=== PATIENT | female | born 1980 | race Caucasian/White ===

== ENCOUNTER 2023-11-13 10:43 | Outpatient (AMB) | payer MEDICAID, SELFPAY ==
--- NOTE | 2023-11-13 10:45 | MHC.OFFVIS ---
Vital Signs 11/13/23 11:02 Height 5 ft 2 in Weight 206 lb 2.115 oz BMI 37.7 BP 112/70 Blood Pressure Location Rt brachial Pulse 71 Pulse Source Pulse Oximeter Pulse Oximetry (%) 98 Oxygen Delivery Method Room Air Intake Visit Reasons: Joint Pain/FM/cm Intake Note: Patient presents for joint pain. joint pain and muscle aches all over body but mostly feel more pain and aches on both hand/elbows. Allergies risperidone [From RISPERDAL] Allergy (Unknown, Verified 11/13/23 10:50) SWELLING [id number] Antimigraine Agents Allergy (Unknown, Verified 11/13/23 10:50) UNKNOWN Medication List - Last Reconciled 11/13/23 by Yumiko Rios MD [id number] [id number] mg (Triumeq) 1 tab PO DAILY atorvastatin 40 mg PO DAILY bupropion HCl XL 150 mg PO QAM clonidine HCl 0.2 mg PO DAILY cyclobenzaprine 20 mg PO BEDTIME gabapentin mg PO levetiracetam ER 750 mg PO BID levothyroxine 150 mcg PO DAILY lisinopril 10 mg PO DAILY lurasidone 20 mg PO BEDTIME lurasidone 40 mg PO BEDTIME naproxen 500 mg PO BID norethindrone acetate 5 mg PO DAILY nystatin topical BID ondansetron 8 mg PO BID paroxetine HCl 10 mg PO QAM zolpidem 10 mg PO BEDTIME PRN HPI Comments Details: This is a 43-year-old female presents for evaluation of diffuse pain. She was evaluated by Dr. Shah in the past and no evidence of an autoimmune rheumatic disease was found. She was evaluated by Dr. Ng in 2022. She states that she was not diagnosed with fibromyalgia at the time as well. She was told that she has tennis elbow. She also had carpal tunnel syndrome affecting her left hand. She has surgery for the left hand carpal tunnel without much relief. Continues to have diffuse pain, fatigue. She denies any history of DVT/PE. Denies any you have recurrent miscarriages COUNT INCLUDES [facility] Medical History Opioid dependence in remission Anxiety Major depression Substance abuse Restless leg Migraine Nondiabetic gastroparesis Hypothyroidism Hepatitis C HIV (human immunodeficiency virus infection) Seizure Bipolar 1 disorder Hypertension Dyslipidemia Surgical History History of carpal tunnel surgery H/O tubal ligation History of hernia repair Family History Father Heart disease Parkinson disease Mother Hypertension Dementia Social History Household Members: Spouse Alcohol intake: current Comment: Ocassionally Patient Tobacco Use Status: Current someday Tobacco user Tobacco use type: Cigarette Cigarette Packs Per Day: 0.5 Cigarettes Per Day: 5 Female Reproductive History Menstrual Total pregnancies: 4 Full term: 3 Ab spontaneous: 1 Review of Systems Const Reports fatigue, Reports fever(s), Reports headache(s) and Reports weakness Eyes Reports dry eyes ENT Reports dysphagia, Reports dry mouth and Reports headache(s) GI Reports constipation, Reports dysphagia and Reports nausea Reports sexual dysfunction and Reports vaginal dryness Skin/Breast Reports alopecia and Reports unusual bruising Neuro Reports headache(s), Reports memory loss and Reports weakness Psych Reports abnormal sleep pattern, Reports anxiety, Reports depression and Reports memory loss Endo Reports fatigue Physical Exam Vital Signs: Last Vital Signs Pulse 71 11/13/23 11:02 BP 112/70 11/13/23 11:02 Pulse Ox 98 11/13/23 11:02 Oxygen Delivery Method Room Air 11/13/23 11:02 BMI result Body Mass Index 37.7 Const General: cooperative, healthy appearing and comfortable Nutritional Appearance: obese morbidly obese Orientation/consciousness: patient oriented x3 Limitations: no limitations HEENT Other: Dry tongue Head: Yes normocephalic and Yes atraumatic Resp Effort & Inspection: normal respiratory effort and able to speak in complete sentences Auscultation: clear to auscultation bilaterally Cardio Rate: regular rate Skin General skin exam: no rashes or lesions noted Neuro General: patient oriented x3 Extrem Other: Bilateral 1st CMC joint tenderness Tenderness at the common extensor origin at the lateral epicondyle bilaterally No swollen joints noted today Normal nailfold capillaroscopy Multiple myofascial tender points Results Reviewed Results Reviewed: Previous labs showed FRANCK/RF/CCP/HLA B27 negative? Left hand MRI No clear changes for significant synovitis or inflammatory arthropathy.? No mass or other findings identified to clear account for the symptoms.? Small synovial ingrowth suggested that the ear side of the 3rd metacarpal head.? Nonspecific Labs 08/2023? FRANCK 1-40 cytoplasmic reticular Lyme screen negative TSH 2.43? CMP unremarkable? ESR 33? HbA1c 5.8%? CBC unremarkable Assessment & Plan Assessment & Plan (1) FRANCK positive: Code(s): R76.8 - Other specified abnormal immunological findings in serum Category: Medical Plan: This is a 43-year-old female presents for evaluation of a positive FRANCK in the context of diffuse pain. Patient was evaluated 2 rheumatologists in the past and no evidence of an autoimmune rheumatic disease was found. There is definitely a component of fibromyalgia in her symptoms as well as degenerative arthritis. Will check further sub serologies to evaluate for any underlying inflammatory arthritis Follow-up in 4-6 weeks Plan I spent 46 minutes reviewing patient's chart, evaluating patient, ordering diagnostic workup, counseling patient and documenting in the chart Orders: Orders Erythrocyte Sedimentation Rate Today M32.9 - Systemic lupus erythematosus, unspecified Immunofixation Pnl, Serum Today M32.9 - Systemic lupus erythematosus, unspecified Anti Extractable Nuclear Ag Today M32.9 - Systemic lupus erythematosus, unspecified Anti DNA DS Antibody Today M32.9 - Systemic lupus erythematosus, unspecified Complement C3 Today M32.9 - Systemic lupus erythematosus, unspecified DNA Double Stranded-Crithidia Today M32.9 - Systemic lupus erythematosus, unspecified UA w Microscopic Today M32.9 - Systemic lupus erythematosus, unspecified Lupus Anticoagulant Panel Today R76.0 - Raised antibody titer Complete Blood Count Auto Diff Today M32.9 - Systemic lupus erythematosus, unspecified Comprehensive Met. Panel Today M32.9 - Systemic lupus erythematosus, unspecified C Reactive Protein Today M32.9 - Systemic lupus erythematosus, unspecified Protein Electrophoresis, Serum Today M32.9 - Systemic lupus erythematosus, unspecified T Spot TB Today Z11.7 - Encounter for testing for latent tuberculosis infection Complement C4 Today M32.9 - Systemic lupus erythematosus, unspecified Protein Creatinine Ratio, Ur Today M32.9 - Systemic lupus erythematosus, unspecified Sjogren's Antibodies Today M32.9 - Systemic lupus erythematosus, unspecified Beta-2 Glycoprotein Antibody Today R76.0 - Raised antibody titer Cardiolipin Antibodies Today R76.0 - Raised antibody titer Thyroglobulin Antibodies Today E07.9 - Disorder of thyroid, unspecified Thyroid Peroxidase Antibodies Today E07.9 - Disorder of thyroid, unspecified Coding Level of Care Code New Pt Level 4 (67451) Diagnoses FRANCK positive R76.8
[2023-11-13 11:02] VITALS: BP 112/70; PULSE 71; O2SAT 98; BMI 37.7
== END 2023-11-13 11:20 | disposition home or self-care (01) ==
PROVIDERS: PCP Physician Assistant; Visit Provider Student in an Organized Health Care Education/Training Program
DX: R76.8 Other specified abnormal immunological findings in serum (principal)
CPT/HCPCS: 99204

== ENCOUNTER → 2023-11-13 10:43 | Outpatient (BNVA) | payer MEDICAID, SELFPAY | PROVIDERS: PCP Physician Assistant; Visit Provider Student in an Organized Health Care Education/Training Program | DX: R76.8 Other specified abnormal immunological findings in serum (principal); M25.50 Pain in unspecified joint | CPT/HCPCS: 99202 ==

== ENCOUNTER 2023-11-15 12:39 | Outpatient (REF) | payer MEDICAID, SELFPAY ==
[2023-11-15 12:58] LABS: MANUAL DIFF FLAG NO
[2023-11-15 13:48] LABS: Basophils Absolute Auto 0.1 X10*3/uL (0.0-0.2); Basophils Percent Auto 0.6 % (0-2); Eosinophils Absolute Auto 0.2 X10*3/uL (0.0-0.4); Hematocrit 42.3 % (37.0-47.0); Hemoglobin 14.5 g/dl (12.0-16.0); Imm Gran Abs Auto 0.03 X10*3/uL (0.00-0.03); Imm Gran Pct Auto 0.4 % (0.0-0.4); Lymphocytes Absolute Auto 2.4 X10*3/uL (1.2-4.9); Lymphocytes Percent Auto 29.8 % (20-40); Mean Corpuscular HGB Conc 34.3 g/dl (31.0-35.0); Mean Corpuscular Hemoglobin 32.6 pg (27.0-33.0); Mean Corpuscular Volume 95.1 fL (80.0-98.0); Mean Platelet Volume 10.8 fL (9.4-12.3); Monocytes Absolute Auto 0.6 X10*3/uL (0.1-1.2); Monocytes Percent Auto 7.5 % (2-11); Neutrophils Absolute Auto 4.6 x10*3/uL (2.0-8.3); Neutrophils Percent Auto 58.7 % (45-73); Platelet Count 300 X10*3/uL (160-400); Red Blood Count 4.45 X10*6/uL (4.20-5.50); Red Cell Distribution Width 12.3 % (11.0-16.0); White Blood Count 7.9 X10*3/uL (4.8-10.8)
[2023-11-15 13:58] LABS: Appearance Urine Cloudy; Color Urine Dark Yellow; Glucose Urine UA Negative (Negative); Leukocyte Esterase Urine Small (1+) (Negative); Nitrite Urine Negative (Negative); Specific Gravity - Urine 1.025 (1.005-1.025); UMIC TRIGGER UA YES; Urine Blood Negative (Negative); Urine Ketones Trace mg/dL (Negative); Urine Protein Negative (Neg-Trace)
[2023-11-15 14:11] LABS: Bacteria Urine 3+ (None Seen); Hyaline Casts Urine 0-2 /LPF (0-2); RBC Urine 0-2 /HPF (0-2); Squamous Epithelial Cell Urine >20 /HPF (0-2)
[2023-11-15 14:13] LABS: Creatinine Urine 191.78 mg/dL; Protein/Creatinine Ratio, Ur 0.05 (<0.2); Total Protein Urine Random 9 mg/dL (<12)
[2023-11-15 14:15] LABS: Alanine Aminotransferase 12 U/L (0-31); Albumin Level 4.5 g/dL (3.5-5.0); Alkaline Phosphatase 73 U/L (39-117); Anion Gap 12 (12-20); Aspartate Amino Transferase 17 U/L (5-31); Bilirubin Total 0.3 mg/dL (0.0-1.0); Blood Urea Nitrogen 17 mg/dL (9-16); C Reactive Protein 1.24 mg/dL (< or = 0.50); Calcium 10.3 mg/dL (8.4-10.2); Carbon Dioxide 20 mmol/L (22-29); Chloride 109 mmol/L (96-108); Estimated Glomerular Filt Rate 52; Glucose Random 100 mg/dL (60-115); Potassium 4.2 mmol/L (3.3-5.1); Sodium 137 mmol/L (135-145); Total Protein 8.2 g/dL (6.5-8.0)
[2023-11-15 14:38] LABS: Erythrocyte Sedimentation Rate 36 MM/HR (0-20)
[2023-11-17 10:08] LABS: Prot Elec - Albumin 4.1 g/dL (3.8-4.8); Prot Elec - Alpha1 0.3 g/dL (0.2-0.3); Prot Elec - Alpha2 1.1 g/dL (0.5-0.9); Prot Elec - Beta 1 0.5 g/dL (0.4-0.6); Prot Elec - Beta 2 0.4 g/dL (0.2-0.5); Prot Elec - Total Protein 7.4 g/dL (6.1-8.1)
[2023-11-17 21:14] LABS: Cardiolipin IgG Ab <2.0 GPL-U/mL; Cardiolipin IgM Ab <2.0 MPL-U/mL
[2023-11-17 22:19] LABS: TS Negative Control Passed; TS Panel A 0; TS Panel B 5; TS Positive Control Passed; TSpotTB Borderline (Negative)
[2023-11-17 22:48] LABS: Anti DNA DS Antibody <1 IU/mL; Antibody to SS-A Antigen <1.0 NEG AI (<1.0 NEG); Antibody to SS-B Antigen <1.0 NEG AI (<1.0 NEG); SM/Ribonucleoprotein Ab <1.0 NEG AI (<1.0 NEG); Smith Protein <1.0 NEG AI (<1.0 NEG)
[2023-11-18 00:54] LABS: Complement C3 191 mg/dL (83-193)
[2023-11-21 04:34] LABS: Beta-2 Glycoprotein IgA <2.0 U/mL (<20.0); Beta-2 Glycoprotein IgG <2.0 U/mL (<20.0); Beta-2 Glycoprotein IgM <2.0 U/mL (<20.0)
[2023-11-21 10:33] LABS: Thyroglobulin Antibodies <1 IU/mL (< or = 1); Thyroid Peroxidase Antibodies 1 IU/mL (<9)
[2023-11-22 05:08] LABS: PTT (LAC) Screen 35 sec (<=40)
[2023-11-23 03:08] LABS: IgA 184 mg/dL (47-310); IgG 1216 mg/dL (600-1640); IgM 21 mg/dL (50-300)
[2023-11-23 15:54] LABS: DNAds, Crithidia Antibody Negative (Negative)
== END 2023-11-15 12:40 | disposition home or self-care (01) ==
LOC: HO.LAB 12:39
PROVIDERS: PCP Physician Assistant; Visit Provider Student in an Organized Health Care Education/Training Program
DX: Z11.7 Encounter for testing for latent tuberculosis infection (principal); M32.9 Systemic lupus erythematosus, unspecified; E07.9 Disorder of thyroid, unspecified; R76.0 Raised antibody titer
CPT/HCPCS: 36415; 80053; 81001; 82570; 82784; 84156; 84165; 85025; 85597; 85598; 85613; 85652; 85730; 86140; 86146; 86147; 86160; 86225; 86235; 86255; 86334; 86376; 86481; 86800

== ENCOUNTER 2023-12-19 12:28 | Outpatient (AMB) | payer MEDICAID, SELFPAY ==
[2023-12-19 12:40] VITALS: BP 124/68; PULSE 61; O2SAT 97; BMI 38.3
--- NOTE | 2023-12-19 12:40 | A.OFFVIS_ITS ---
Vital Signs 12/19/23 12:40 Height 5 ft 2 in Weight 209 lb 3.499 oz BMI 38.3 BP 124/68 Blood Pressure Location Lt brachial Position Sitting Pulse 61 Pulse Source Pulse Oximeter Pulse Oximetry (%) 97 Oxygen Delivery Method Room Air Intake Visit Reasons: FRANCK +ve/cm Intake Note: Patient was last seen on 11/13/2023 for FRANCK, here today for follow up and lab review. Allergies risperidone [From RISPERDAL] Allergy (Unknown, Verified 11/13/23 10:50) SWELLING [id number] Antimigraine Agents Allergy (Unknown, Verified 11/13/23 10:50) UNKNOWN Medication List - Last Reconciled 12/19/23 by Yumiko Rios MD [id number] 600-50-300 mg (Triumeq) 1 tab PO DAILY atorvastatin 40 mg PO DAILY bupropion HCl XL 150 mg PO QAM clonidine HCl 0.2 mg PO DAILY cyclobenzaprine 20 mg PO BEDTIME gabapentin mg PO levetiracetam ER 750 mg PO BID levothyroxine 150 mcg PO DAILY lisinopril 10 mg PO DAILY lurasidone 20 mg PO BEDTIME lurasidone 40 mg PO BEDTIME naproxen 500 mg PO BID norethindrone acetate 5 mg PO DAILY nystatin topical BID ondansetron 8 mg PO BID paroxetine HCl 10 mg PO QAM zolpidem 10 mg PO BEDTIME PRN HPI Comments Details: Patient returns for follow-up. Continues to feel about the same Initial history: This is a 43-year-old female presents for evaluation of diffuse pain. She was evaluated by Dr. Shah in the past and no evidence of an autoimmune rheumatic disease was found. She was evaluated by Dr. Ng in 2022. She states that she was not diagnosed with fibromyalgia at the time as well. She was told that she has tennis elbow. She also had carpal tunnel syndrome affecting her left hand. She has surgery for the left hand carpal tunnel without much relief. Continues to have diffuse pain, fatigue. She denies any history of DVT/PE. Denies any you have recurrent miscarriages [facility] Medical History Opioid dependence in remission Anxiety Major depression Substance abuse Restless leg Migraine Nondiabetic gastroparesis Hypothyroidism Hepatitis C HIV (human immunodeficiency virus infection) Seizure Bipolar 1 disorder Hypertension Dyslipidemia Surgical History History of carpal tunnel surgery H/O tubal ligation History of hernia repair Family History Father Heart disease Parkinson disease Mother Hypertension Dementia Social History Household Members: Spouse Alcohol intake: current Comment: Ocassionally Patient Tobacco Use Status: Current someday Tobacco user Tobacco use type: Cigarette Cigarette Packs Per Day: 0.5 Cigarettes Per Day: 5 Female Reproductive History Menstrual Total pregnancies: 4 Full term: 3 Ab spontaneous: 1 Review of Systems Const Reports fatigue, Reports headache(s) and Reports weakness ENT Reports headache(s) GI Reports constipation and Reports nausea Skin/Breast Reports alopecia and Reports unusual bruising Neuro Reports headache(s), Reports memory loss and Reports weakness Psych Reports abnormal sleep pattern, Reports anxiety, Reports depression and Reports memory loss Endo Reports fatigue Physical Exam Vital Signs: Last Vital Signs Pulse 61 12/19/23 12:40 BP 124/68 12/19/23 12:40 Pulse Ox 97 12/19/23 12:40 Oxygen Delivery Method Room Air 12/19/23 12:40 BMI result Body Mass Index 38.3 Const General: cooperative, healthy appearing and comfortable Nutritional Appearance: obese morbidly obese Orientation/consciousness: patient oriented x3 Limitations: no limitations HEENT Head: Yes normocephalic and Yes atraumatic Resp Effort & Inspection: normal respiratory effort and able to speak in complete sentences Cardio Rate: regular rate Skin General skin exam: no rashes or lesions noted Neuro General: patient oriented x3 Extrem Other: Bilateral 1st CMC joint tenderness Tenderness at the common extensor origin at the lateral epicondyle bilaterally No swollen joints noted today Normal nailfold capillaroscopy Multiple myofascial tender points Results Reviewed Results Reviewed: Previous labs showed FRANCK/RF/CCP/HLA B27 negative? Left hand MRI No clear changes for significant synovitis or inflammatory arthropathy.? No mass or other findings identified to clear account for the symptoms.? Small synovial ingrowth suggested that the ear side of the 3rd metacarpal head.? Nonspecific Labs 08/2023? FRANCK 1-40 cytoplasmic reticular Lyme screen negative TSH 2.43? CMP unremarkable? ESR 33? HbA1c 5.8%? CBC unremarkable Assessment & Plan Assessment & Plan (1) FRANCK positive: Code(s): R76.8 - Other specified abnormal immunological findings in serum Category: Medical Plan: This is a 43-year-old female presents for evaluation of a positive FRANCK 1-40 in the context of diffuse pain. Patient was evaluated 2 rheumatologists in the [facility] and no evidence of an autoimmune rheumatic disease was found. I checked comprehensive serology for underlying autoimmune rheumatic disease. Evaluation is negative, she does not have mildly elevated inflammatory markers which is nonspecific. Discussed management of fibromyalgia with patient. Is a noninflammatory, non- autoimmune central afferent processing disorder leading to a diffuse pain syndrome. Patient follows up regularly with her psychologist and psychiatrist. Try to follow sleep hygiene practices. Consider a referral for a sleep study by her PCP to rule out ROXIE. Patient would benefit from increased physical activity, either through formal physical therapy or by joining a gym. Advised patient that she should start activity slowly and increase as tolerated. Consider low-impact exercises such as walking, swimming, aqua therapy stretching, yoga. She is already on gabapentin for anxiety. Follow-up with PCP Plan I spent 16 minutes reviewing patient's chart, evaluating patient,counseling patient and documenting in the chart Coding Level of Care Code Est Pt Level 3 (23913) Diagnoses FRANCK positive R76.8
== END 2023-12-19 13:00 | disposition home or self-care (01) ==
PROVIDERS: PCP Physician Assistant; Visit Provider Student in an Organized Health Care Education/Training Program
DX: R76.8 Other specified abnormal immunological findings in serum (principal)
CPT/HCPCS: 99213

== ENCOUNTER → 2023-12-19 12:28 | Outpatient (BNVA) | payer MEDICAID, SELFPAY | PROVIDERS: PCP Physician Assistant; Visit Provider Student in an Organized Health Care Education/Training Program | DX: R76.8 Other specified abnormal immunological findings in serum (principal) | CPT/HCPCS: 99212 ==